=== PATIENT | male | born 1990 | race Two or more races ===

== ENCOUNTER 2021-08-17 21:09 | Emergency (ER) | payer MEDICAID ==
[~2021-08-17] VITALS: Ht 165.1 cm; Wt 68.0 kg
[2021-08-17 21:17] VITALS: BP 142/81
[2021-08-17] MEDS ORDERED: TDAP [DIPH/PERTUSSIS/TET] 0.5 ML VIAL IM ONE (21:57)
[2021-08-17] MEDS: TDAP [DIPH/PERTUSSIS/TET] 0.5 ML VIAL IM ONE (22:07)
--- NOTE | 2021-08-17 22:14 | NUR ---
Patient discharged to home in stable condition. Written and verbal after care instructions given. Patient verbalizes understanding of instruction. Pt. ambulatory with a steady gait.
== END 2021-08-17 22:14 | disposition home or self-care (01) ==
LOC: ER 21:18
DX: S01.21XA Laceration without foreign body of nose, initial encounter (principal); W31.1XXA Contact with metalworking machines, initial encounter; Y93.89 Activity, other specified; Y92.89 Other specified places as the place of occurrence of the external cause; Y99.8 Other external cause status
CPT/HCPCS: 12013; 90471; 90715; 99283; A6403